=== PATIENT | male | born 1985 | race African-American/Black ===

== ENCOUNTER 2016-09-28 04:32 | Emergency (ER) | payer SELFPAY ==
[2016-09-28 05:34] VITALS: BP 151/92
== END 2016-09-28 05:35 | disposition home or self-care (01) ==
LOC: ED 04:32
DX: F41.9 Anxiety disorder, unspecified (principal); J45.909 Unspecified asthma, uncomplicated

== ENCOUNTER 2016-12-21 16:04 | Emergency (ER) | payer MEDICAID ==
[2016-12-21 17:12] VITALS: BP 154/106
== END 2016-12-21 17:12 | disposition home or self-care (01) ==
LOC: ED 16:04
DX: Z76.0 Encounter for issue of repeat prescription (principal); F41.9 Anxiety disorder, unspecified

== ENCOUNTER 2019-01-25 15:59 | Emergency (ER) | payer MEDICAID ==
[~2019-01-25] VITALS: Ht 177.8 cm; Wt 85.3 kg
[2019-01-25 16:07] VITALS: Ht 177.8 cm; Wt 85.3 kg
[2019-01-25 18:44] VITALS: BP 157/89
== END 2019-01-25 18:39 | disposition home or self-care (01) ==
LOC: ED 15:59
DX: G25.9 Extrapyramidal and movement disorder, unspecified (principal); F32.9 Major depressive disorder, single episode, unspecified; J45.909 Unspecified asthma, uncomplicated; F41.9 Anxiety disorder, unspecified; F17.210 Nicotine dependence, cigarettes, uncomplicated; Z71.6 Tobacco abuse counseling
CPT/HCPCS: 99406; J0515; J1200

== ENCOUNTER 2019-01-26 06:05 | Emergency (ER) | payer MEDICAID ==
[~2019-01-26] VITALS: Ht 180.3 cm; Wt 86.2 kg
[2019-01-26 06:17] VITALS: Ht 180.3 cm; Wt 86.2 kg
[2019-01-26 07:07] LABS: BASOPHIL % 0.3 % (0-2); PLATELET COUNT 255 x10^3mcL (130-400); RED CELL DISTRIBUTION WIDTH 13.3 % (11.5-14.5)
[2019-01-26 07:52] LABS: CARBON DIOXIDE 24.8 mmol/L (21-32); CREATININE SERUM 1.5 mg/dL (0.7-1.3)
[2019-01-26 07:58] LABS: ALBUMIN 3.9 g/dL (3.4-5.0); BILIRUBIN TOTAL 1.6 mg/dL (0.20-1.00); TOTAL PROTEIN, SERUM 7.4 g/dL (6.4-8.2)
[2019-01-26 08:06] LABS: FREE T4 1.36 ng/dL (0.76-1.46); FREE THYROXINE INDEX 4.3 ug/dL (1.4-4.5); T4(THYROXINE) 11.4 ug/dL (4.7-13.3)
[2019-01-26 08:18] LABS: T3 TOTAL 1.31 ng/mL
[2019-01-26 13:10] LABS: AMPHETAMINE QUAL UR POSITIVE (See below)
[2019-01-26 14:37] VITALS: BP 128/105
== END 2019-01-26 14:37 | disposition home or self-care (01) ==
LOC: ED 06:05
PROVIDERS: Emergency Medicine
DX: R25.8 Other abnormal involuntary movements (principal); J45.909 Unspecified asthma, uncomplicated; F32.9 Major depressive disorder, single episode, unspecified; F41.9 Anxiety disorder, unspecified
CPT/HCPCS: 84439; J1200; J7030